=== PATIENT | male | born 1965 | race Caucasian/White ===

== ENCOUNTER 2017-12-15 08:56 | Emergency (ER) | payer OTHER ==
[~2017-12-15] VITALS: Ht 177.8 cm; Wt 96.2 kg
--- OUTSIDE RECORDS SUMMARY | ~2017-12-15 | XMS | Clinical Summary ---
Demographics + + + | Address | [address] | | | [place] [address] | + + + | Home Phone | | + + + | Preferred Language | Unknown | + + + | Marital Status | | + + + | Yarsani Affiliation | Unknown | + + + | Race | Unknown | + + + | Ethnic Group | Unknown | + + + Author + + + | Author | [facility] | | | and [place] | + + + | Organization | [facility] | | | and [place] | + + + | Address | Unknown | + + + | Phone | Unavailable | + + + Support + + +---------+ + | Name | Relationship | Address | Phone | + + +---------+ + | Lima Camarena | ECON | Unknown | | + + +---------+ + Care Team Providers + +------+ + | Care Hand Printed Circuit Board Assembler Name | Role | Phone | + +------+ + | Pcp, Prov Inactive | PP | | + +------+ + Allergies No Known Allergies Current Medications + + +--------+---------+------+------+-------+ | Prescription | Sig. | Disp. | Refills | Star | End | Statu | | | | | | t | Date | s | | | | | | Date | | | + + +--------+---------+------+------+-------+ | fenofibrate | Take 160 mg by mouth | | | 02/2 | | Activ | | (LOFIBRA, TRIGLIDE) | Daily. | | | 220 | | e | | 160 mg tablet | | | | 12 | | | + + +--------+---------+------+------+-------+ | | Take 12.5 mg by | | | 01/07 | | Activ | | hydrochlorothiazide | mouth Daily. | | | 10/27 | | e | | (HYDRODIURIL) 12.5 | | | | 11 | | | | MG tablet | | | | | | | + + +--------+---------+------+------+-------+ | lovastatin | Take 40 mg by mouth | | | 09/0 | | Activ | | (MEVACOR) 40 MG | nightly. | | | 03/29 | | e | | tablet | | | | 11 | | | + + +--------+---------+------+------+-------+ | niacin | Take 2 tablets by | | | 02/07 | | Activ | | (SLO-NIACIN) 1000 mg | mouth daily | | | 08/26 | | e | | TBCR | | | | 12 | | | + + +--------+---------+------+------+-------+ | Testosterone | 2 pumps applied to | | | 02/07 | | Activ | | (ANDROGEL PUMP) | skin daily | | | 08/26 | | e | | 20.25 MG/ACT (1.62%) | | | | 12 | | | | GEL | | | | | | | + + +--------+---------+------+------+-------+ | Blood Glucose | check glucose daily. | | | 10/08 | | Activ | | Monitoring Suppl | Diagnosis 250.00 | | | 04/26 | | e | | (BLOOD GLUCOSE | | | | 12 | | | | MONITOR SYSTEM) | | | | | | | | W/DEVICE KIT | | | | | | | + + +--------+---------+------+------+-------+ | glucose blood | Use to check blood | | | / | | Activ | | test strips | sugar daily. | | | 03/29 | | e | | (FREESTYLE LITE) | Diagnosis 250.00 | | | 12 | | | | strip | | | | | | | + + +--------+---------+------+------+-------+ | Lancets MISC | Use to check blood | | | /2 | | Activ | | | sugar daily. | | | 2/ | | e | | | Diagnosis 250.00 | | | 12 | | | + + +--------+---------+------+------+-------+ | lisinopril | take 1 tablet by | 90 | 0 | 11/08 | | Activ | | (PRINIVIL,ZESTRIL) | mouth once daily | tablet | | 02/26 | | e | | 40 MG | | | | 12 | | | | tabletIndications: | | | | | | | | Hypertension | | | | | | | + + +--------+---------+------+------+-------+ Active Problems + + + | Problem | Noted Date | + + + | HYPOGONADISM | 02/23/2011 | + + + | DIABETES MELLITUS, CONTROLLED | 10/14/2010 | + + + | SMOKELESS TOBACCO ABUSE | 09/25/2010 | + + + | MEDIAL MENISCUS TEAR, RIGHT | 09/20/2010 | + + + | HYPERTENSION | | + + + | HYPERLIPIDEMIA | | + + + | HIGH BLOOD PRESSURE | | + + + + + | Overview: ICD-10 Record update | + + Immunizations + + + + | Name | Dates Previously Given | Next Due | + + + + | TD W/PRESERVATIVE, | 02/07/2005 | | | (ADOL/ADULT) | | | + + + + Social History + +-------+ +--------+------+ | Tobacco Use | Types | Packs/Day | Years | Date | | | | | Used | | + +-------+ +--------+------+ | Never Assessed | | | | | + +-------+ +--------+------+ + + + | Sex Assigned at | Date Recorded | | | | + + + | Not on file | | + + + Last Filed Vital Signs + + + + | Vital Sign | Reading | Time Taken | + + + + | Blood Pressure | 148/80 | 03/31/2011 0000 PST | + + + + | Pulse | - | - | + + + + | Temperature | - | - | + + + + | Respiratory Rate | - | - | + + + + | Oxygen Saturation | - | - | + + + + | Inhaled Oxygen | - | - | | Concentration | | | + + + + | Weight | 134.7 kg (297 lb) | 03/31/2011 0000 PST | + + + + | Height | 178.4 cm (5' 10.25") | 09/21/2010 0000 PDT | + + + + | Body Mass Index | 42.31 | 03/31/2011 0000 PST | + + + + Plan of Treatment + + + + + | Health Maintenance | Due Date | Last Done | Comments | + + + + + | Vaccine: | | 02/07/2005 | | | Dtap/Tdap/Td (1 - | 6 | | | | Tdap) | | | | + + + + + | Vaccine: Influenza | | | | | (#1) | 8 | | | + + + + + Results Not on filefrom Last 3 Months
--- OUTSIDE RECORDS SUMMARY | ~2017-12-15 | XMS | Clinical Summary ---
Demographics + + + | Address | [address] | | | [place] [address] | + + + | Home Phone | | + + + | Preferred Language | Unknown | + + + | Marital Status | | + + + | Bahai Affiliation | Unknown | + + + | Race | Unknown | + + + | Ethnic Group | Unknown | + + + Author + + + | Author | [facility] | | | and [place] | + + + | Organization | [facility] | | | and [...] Team Providers + +------+ + | Care Histology Supervisor Name | Role | Phone | + [...]
[2017-12-15] MEDS ORDERED: ADVIL200 M1 PO (09:17)
[2017-12-15] MEDS ORDERED: IBUPROFEN600 MG PO (10:31)
[2017-12-15] MEDS ORDERED: NORCO 5-325 TA1 EACH PO (10:31)
[2017-12-15] MEDS ORDERED: AMLODIPINE BESYL5 MG PO (10:31)
== END 2017-12-15 10:51 | disposition home or self-care (01) ==
LOC: ED 08:56
DX: S70.12XA Contusion of left thigh, initial encounter (principal); I10 Essential (primary) hypertension; W19.XXXA Unspecified fall, initial encounter
CPT/HCPCS: 73552; 76882; 99284

== ENCOUNTER 2019-02-26 12:00 | Emergency (ER) | payer OTHER ==
[~2019-02-26] VITALS: Ht 177.8 cm; Wt 100.7 kg
[~2019-02-26 12:00] MED LIST: ADVIL200 M1 PO; AMLODIPINE BESYL5 MG PO; IBUPROFEN600 MG PO; NORCO 5-325 TA1 EACH PO
--- NOTE | 2019-02-27 13:02 | EKG ---
[facility] [address] [facility] [place] [address] Signed Normal sinus rhythm Left axis deviation Right bundle branch block Voltage criteria for left ventricular hypertrophy Abnormal ECG No previous ECGs available Confirmed by DIVINA MCCURDY DO ([id number]) on 02/27/2019 1:02:48 PM Electronically Signed By: DIVINA MCCURDY DO 02/27/19 1302 PATIENT NAME: JACQUECR EFRAIN Electrocardiogram DATE OF : 61 PHYSICIAN: DIVINA MCCURDY DO REPORT #: [id number] REPORT IS CONFIDENTIAL AND NOT TO BE RELEASED WITHOUT AUTHORIZATION
== END 2019-02-26 14:10 | disposition home or self-care (01) ==
LOC: ED 12:00
DX: I16.0 Hypertensive urgency (principal); E11.9 Type 2 diabetes mellitus without complications
CPT/HCPCS: 70450; 80053; 85025; 93005; 93010; 99284-25